=== PATIENT | male | born 1965 | race Caucasian/White ===

== ENCOUNTER 2018-05-25 12:01 | Emergency (ER) | payer OTHER, SELFPAY ==
[2018-05-25 12:05] VITALS: BP 128/93; PULSE 56; RESP 16; TEMP 36.8; O2SAT 99
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
[2018-05-25 13:20] VITALS: BP 128/81; PULSE 54; RESP 18; TEMP 36.5; O2SAT 100
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
[2018-05-25 14:18] VITALS: BP 128/81; PULSE 54; RESP 18; TEMP 36.5; O2SAT 100
== END 2018-05-25 14:15 | disposition home or self-care (01) ==
LOC: ER 14:25
PROVIDERS: Emergency Provider Student in an Organized Health Care Education/Training Program
DX: S22.028A Other fracture of second thoracic vertebra, initial encounter for closed fracture (principal); S22.038A Other fracture of third thoracic vertebra, initial encounter for closed fracture; V18.0XXA Pedal cycle driver injured in noncollision transport accident in nontraffic accident, initial encounter; Y93.55 Activity, bike riding
CPT/HCPCS: 90471; 99284; 71046; 72125; 72128; L0172